=== PATIENT | female | born 1985 | race Caucasian/White ===

== ENCOUNTER → 2016-10-11 | Outpatient (CLI) | payer BC ==
[~2016-10-11] MED LIST: FERROUS SULFAT325 M2 PO; LEVOTHYROXIN0.112 M1 PO; PRENATAL PLUS1 TA1 PO; SYNTHROID 0.00.05 MG PO
--- NOTE | 2016-10-11 17:01 | RADIOLOGY REPORT PS360 ---
US PREG > 14 WEEKS SNGL/GEST CLINICAL INDICATION: OB US FOR DATES ORDERING PHYSICIAN: Portillo Moreno MD PATIENT AGE: 31 years COMPARISON: None FINDINGS: There is a single live intrauterine gestation present which is in breech position. Average gestational age is 14 weeks 2 days. Estimated due date by ultrasound is to 418. heart tones are present with an FHR 147 BPM. BPD 14 weeks 5 days, OFD 14 weeks 2 days, HC 14 weeks 2 days, abdominal circumference 14 weeks 2 days, FL 14 weeks 1 day No gross anomalies are evident. This study however is not performed as an anatomy exam. The placenta is posterior. Amniotic chorion have not yet fused. IMPRESSION: Live IUP at 14 weeks 2 days as described above
== END ==
LOC: RAD 13:15
DX: O26.841 Uterine size-date discrepancy, first trimester (principal)

== ENCOUNTER → 2016-11-23 | Outpatient (CLI) | payer BC ==
--- NOTE | 2016-11-23 23:17 | RADIOLOGY REPORT PS360 ---
US PREG COMP: INDICATION: ANATOMY OB US ORDERING PHYSICIAN: Portillo Moreno MD PATIENT AGE: 31 years TECHNIQUE: ultrasound transabdominal scanning. COMPARISON: No previous relevant studies. FINDINGS: Single viable intrauterine gestation. Breech position Currently. Placenta: Posterior placenta grade 1.. No previa There is average amount fluid. The cervix is closed long measuring 4.5 cm in length. Complete survey performed and was unremarkable on the submitted images as in PACS. No discrete anomalies identified on survey imaging by technologist. Active fetus.Three-vessel cord with satisfactory umbilical cord insertion. Survey of brain & ventricles. In posterior fossa unremarkable Face and neck survey unremarkable. Nasion intact Diaphragm and chest views unremarkable.4- chamber heart imaged... Aortic arch/. LVOT imaged Abdomen: Both kidneys noted and unremarkable. Stomach noted and satisfactory. Spine: Survey of the spine satisfactory with no anomalies identified nor imaged. Both arms and legs noted. Appears to be most likely female fetus Amniotic Fluid: Adequate. Maternal adnexa: No significant findings encountered. Measurements: Average ultrasound age 20 week 3 day. Gestational Age 20 week 3 day. Estimated due date by ultrasound age 204/09/2017. Estimated weight . 366 +/- 54 grams. BPD = 19 week 5 day OFD = 21 week 1 day HC = 19 week 6 day AC = 20 week 6 day FL = 20 week 6 day Heart Rate = 142 Cerebellum = 20 week 2 day Humerus = 20 week 3 day HC/AC = 1.1 (1.09-1.26.(1.09-1.26.) CI = 71% (70-86%).(70-86%). FL/BPD is 76 %. FL/AC is 22 %. IMPRESSION: 20 week 3 day average ultrasound age breech position. Posterior placenta. Fetus is active with unremarkable anatomical survey -/WNL
== END ==
LOC: RAD 14:56
DX: Z36 Encounter for antenatal screening of mother (principal)

== ENCOUNTER → 2017-01-20 | Outpatient (CLI) | payer BC ==
[2017-01-20 12:08] LABS: FREE THYROXIN INDEX 8.6 ug/dl (5.93-13.13)
== END ==
LOC: LAB 09:23
PROVIDERS: Nurse Practitioner Obstetrics & Gynecology
DX: E03.8 Other specified hypothyroidism (principal)